=== PATIENT | female | born 1955 | race Caucasian/White ===

== ENCOUNTER 2018-08-25 06:39 | Day surgery (SDC) | payer BC ==
[~2018-08-25 06:39] MED LIST: Lactated Ringers 1,000 ML IV SCH; Lidocaine 1%/Sod Bicarbonate in NS 8.4% 1 ML Syringe IDERM PRN; Sodium Chloride 0.9% 10 ML Syringe FLUSH PRN
[2018-08-25] MEDS ORDERED: fentaNYL 100 MCG/2 ML SDV ONE (07:25)
[2018-08-25] MEDS ORDERED: Propofol 200 MG/20 ML SDV ONE (07:25)
[2018-08-25] MEDS ORDERED: Lidocaine 1% 4 ML ONE (07:26)
--- NOTE | 2018-08-25 08:53 | PCM.OPNOTE ---
- General Post-Op/Procedure Note Date of Surgery/Procedure: 08/25/18 Operative Procedure(s): Surveillance colonoscopy attempted and terminated, with polypectomy Findings: Multiple colon sigmoid and rectal polyps 1-4mm, only sampling of polyps taken. Small and large diverticulum. Colonoscope that could not pass 20cm. Pre Op Diagnosis: History of colon polyps and colon stricture Post-Op Diagnosis: same Anesthesia Technique: MAC Primary Surgeon: Dana Frazier Anesthesia Provider: Denis Morales Pathology: 1. Sigmoid polyps x4 2. Rectal polyps x6 Output, Urine Amount: 0 EBL in mLs: 0 Complications: none apparent Condition: Good
--- NOTE | 2018-08-25 08:56 | PCM.PRNOTE ---
- Free Text/Narrative Note: Operative Report Date of Surgery/Procedure: August 25, 2018 Operative Procedure: Surveillance Colonoscopy - aborted, with polypectomy Pre Op Diagnosis: colorectal cancer screening . for History of colon polyps, history of colon stricture Post-Op Diagnosis: Same Surgeon: Dana Frazier MD Anesthesia Technique: MAC Anesthesia Provider: Denis Morales CRNA IV Fluid Replacement, Intraop: See anesthesia record Output, Urine Amount: 0cc EBL : 0cc Findings: Multiple colon sigmoid and rectal polyps 1-4mm, only sampling of polyps taken. Small and large diverticulum. Colonoscope that could not pass 20cm. Specimens: 1. Sigmoid polyps 4 2. Rectal polyps 6 Indication: The patient is a 63 year-old lady who presented to the outpatient clinic requesting colorectal cancer screening. The patient has a history of diverticulitis with a colonic stricture that was previously dilated. She also has a history of adenomatous colon polyps with high-grade dysplasia. We discussed the procedure of a surveillance colonoscopy including the polypectomy and biopsy. Risks of bleeding and perforation were discussed, the patient understood and wished to proceed. The patient is being followed by GI in [place]. I discussed the patient that if we could not pass the scope that she would have to proceed with colonoscopy or other tests as indicated by GI in [place]. Written and consent was obtained, and the patient agreed to this plan. Description of the procedure: The patient was brought to the endoscopy suite and placed in the left lateral decubitus position. Appropriate monitors were applied. The patient was given MAC anesthesia. An anorectal examination was performed, revealing external skin tags. The scope was placed into the rectum and advanced 20cm. at this point, the scope would not pass any further. Increase medication was given and abdominal pressure was applied without success. At this point, the scope was withdrawn, paying careful attention to the mucosa. Multiple polyps ranging from 1-4 mm were scattered throughout the visualized mucosa. Four sigmoid polyps were removed, additionally 6 Rectal polyps were removed. There were still polyps remaining in the tissues. After this polypectomy the scope was retroflexed and some hemorrhoidal tissue was seen. The scope was placed back in the lumen and the excess air was aspirated. The patient tolerated the procedure well. Complications: none apparent Condition: Good, transported to PACU in stable condition. Instructions: The patient will proceed immediately to a barium enema for better visualization of the colon. I instructed the patient to inform her supervisor cytology in [place] of the difficulty that we experienced and the testing that we were going to perform so that this physician may follow up these tests. She will follow up with me in 2 weeks. Dana Frazier MD General Surgery
--- NOTE | 2018-08-25 08:57 | PCM.PREANE ---
Preanesthetic Assessment - Procedure Proposed Procedure: Surveillance colonoscopy - Anesthesia/Transfusion/Family Hx Anesthesia History: Prior Anesthesia Without Reaction Family History of Anesthesia Reaction: No Transfusion History: No Prior Transfusion(s) Additional History: MS - Review of Systems General: No Symptoms Pulmonary: No Symptoms Cardiovascular: No Symptoms Gastrointestinal: No Symptoms Neurological: No Symptoms Other: Reports: None - Physical Assessment NPO Status Date: 08/24/18 NPO Status Time: 20:30 O2 Sat by Pulse Oximetry: 99 Respiratory Rate: 16 Vital Signs: Last Vital Signs Temp 36.7 C 08/25/18 06:45 Pulse 83 08/25/18 06:45 Resp 16 08/25/18 06:45 BP 126/76 08/25/18 06:45 Pulse Ox 99 08/25/18 06:45 Height: 1.65 m Weight: 49.895 kg ASA Class: 2 Mental Status: Alert & Oriented x3 Airway Class: Mallampati = 2 Dentition: Reports: Partial (upper and lower ) Thyro-Mental Finger Breadths: 3 Mouth Opening Finger Breadths: 3 ROM/Head Extension: Full Lungs: Clear to Auscultation, Normal Respiratory Effort Cardiovascular: Regular Rate, Regular Rhythm - Allergies Allergies/Adverse Reactions: Allergies Allergy/AdvReac Type Severity Reaction Status Date / Time Penicillins Allergy Airway Verified 04/08/14 08:31 Tightness - Blood Blood Available: No Product(s) Available: None - Anesthesia Plan Pre-Op Medication Ordered: None - Acknowledgements Anesthesia Type Planned: MAC Pt an Appropriate Candidate for the Planned Anesthesia: Yes Alternatives and Risks of Anesthesia Discussed w Pt/Guardian: Yes Pt/Guardian Understands and Agrees with Anesthesia Plan: Yes PreAnesthesia Questionnaire Cardiovascular History: Reports: Other (See Below) Other Cardiovascular History: Hyperlipidemia Gastrointestinal History: Reports: Colon Polyp, Diverticulosis Musculoskeletal History: Reports: Osteoporosis, Other (See Below) Other Musculoskeletal History: Hx of distal radius fracture Neurological History: Reports: Other (See Below) (Multiple sclerosis) Psychiatric History: Reports: Anxiety, Depression - Past Surgical History GI Surgical History: Reports: Colonoscopy, EGD Female Surgical History: Reports: Cystectomy, Hysterectomy Musculoskeletal Surgical History: Reports: Other (See Below) (Lt thumb tendon repair, wrist surgery) - HOME MEDS Home Medications: Home Meds Glatiramer Acetate [Copaxone] 40 mg PO ASDIRECTED 04/05/14 [History] Omeprazole 40 mg PO DAILY 04/05/14 [History] Aspirin [Adult Low Dose Aspirin EC] 81 mg PO DAILY 07/03/18 [History] OLANZapine [ZyPREXA] 2.5 mg PO DAILY 07/03/18 [History] Sucralfate 1 gram PO QID 07/03/18 [History] Venlafaxine HCl [Venlafaxine ER] 75 mg PO DAILY 07/03/18 [History] Venlafaxine HCl [Venlafaxine ER] 150 mg PO DAILY 07/03/18 [History] Venlafaxine [Effexor] 75 mg PO DAILY 08/25/18 [History] clonazePAM [Klonopin] 1 mg PO BID 08/25/18 [History] - CURRENT (IN HOUSE) MEDS Current Meds: Current Medications Lactated Ringer's (Ringers, Lactated) 1,000 mls @ 125 mls/hr IV ASDIRECTED BOGDAN Stop: 08/25/18 23:00 Last Admin: 08/25/18 07:05 Dose: 125 mls/hr Lidocaine/Sodium Bicarbonate (Buffered Lidocaine 1% In Ns 8.4%) 0.25 ml IDERM ONETIME PRN PRN Reason: Prior to IV Start Stop: 08/25/18 18:00 Last Admin: 08/25/18 07:05 Dose: 0.25 ml Sodium Chloride (Saline Flush) 10 ml FLUSH ASDIRECTED PRN PRN Reason: Keep Vein Open Stop: 08/25/18 18:00 Discontinued Medications Fentanyl (Sublimaze) Confirm Administered Dose 100 mcg .ROUTE .STK-MED ONE Stop: 08/25/18 07:26 Lidocaine HCl (Xylocaine-Mpf 1%) Confirm Administered Dose 4 mls @ as directed .ROUTE .STK-MED ONE Stop: 08/25/18 07:27 Propofol (Diprivan 20 Ml) Confirm Administered Dose 200 mg .ROUTE .STK-MED ONE Stop: 08/25/18 07:26
--- NOTE | 2018-08-25 08:58 | PCM48HPAN ---
Post Anesthesia Note - EVALUATION WITHIN 48HRS OF ANESTHETIC Vital Signs in Normal Range: Yes Patient Participated in Evaluation: Yes Respiratory Function Stable: Yes Airway Patent: Yes Cardiovascular Function Stable: Yes Hydration Status Stable: Yes Pain Control Satisfactory: Yes Nausea and Vomiting Control Satisfactory: Yes Mental Status Recovered: Yes Pulse Rate: 68 SaO2: 99 Resp Rate: 16 Temperature: 36.7 C Blood Pressure: 113/82
[2018-08-25] MEDS ORDERED: Barium Sulfate 105% w/v Susp 1,900 ML Bottle RECTAL ONE (09:28)
--- NOTE | 2018-08-25 11:13 | CR ---
Barium enema Preliminary view of the abdomen was obtained which is unremarkable. Air contrast barium enema was performed. Colon was outlined from the rectosigmoid to the cecum. No reflux into the terminal ileum is seen. Diverticulosis is seen most severe within the sigmoid colon. No discrete intraluminal polyp is identified. No annular constricting lesion is seen. Impression: 1. Diverticulosis most severe within sigmoid colon. 2. No additional abnormality is appreciated on air contrast barium enema study. Diagnostic code #2
== END 2018-08-25 09:25 | disposition home or self-care (01) ==
LOC: JD.SDS 06:39
PROVIDERS: ATTEND Surgery
DX: Z12.11 Encounter for screening for malignant neoplasm of colon (principal); K63.5 Polyp of colon; K62.1 Rectal polyp; K64.9 Unspecified hemorrhoids; G35 Multiple sclerosis; M81.0 Age-related osteoporosis without current pathological fracture; M18.11 Unilateral primary osteoarthritis of first carpometacarpal joint, right hand; F32.9 Major depressive disorder, single episode, unspecified; F41.9 Anxiety disorder, unspecified; F17.210 Nicotine dependence, cigarettes, uncomplicated; Z79.82 Long term (current) use of aspirin; Z79.899 Other long term (current) drug therapy; Z88.0 Allergy status to penicillin; Z86.010 Personal history of colon polyps; Z80.0 Family history of malignant neoplasm of digestive organs; Z83.71 Family history of colonic polyps
CPT/HCPCS: 45331; 74270; J2704; J3010; J7120; 00811; J2001

== ENCOUNTER 2022-04-27 08:49 | Day surgery (SDC) | payer MEDICARE, BC ==
[~2022-04-27 08:49] MED LIST changes: +Sodium Chloride 0.9% 10 ML Syringe FLUSH SCH
[2022-04-27] MEDS ORDERED: Lidocaine 1% with EPINEPHrine 1:100,000 20 ML MDV ONE (08:54)
[2022-04-27] MEDS ORDERED: Rocuronium 50 MG/5 ML Vial ONE (09:53)
[2022-04-27] MEDS ORDERED: Midazolam 1 MG/ML 2 ML SDV ONE (09:53)
[2022-04-27] MEDS ORDERED: Propofol 200 MG/20 ML SDV ONE ×2 (09:53→11:48)
[2022-04-27] MEDS ORDERED: fentaNYL 250 MCG/5 ML SDV ONE (09:53)
[2022-04-27] MEDS ORDERED: Lactated Ringers 1,000 ML ONE (09:53)
[2022-04-27] MEDS ORDERED: ceFAZolin 1 GM Vial ONE (09:53)
[2022-04-27] MEDS ORDERED: Ondansetron 4 MG/2 ML SDV ONE (11:05)
[2022-04-27] MEDS ORDERED: Ketorolac 15 MG/ML SDV ONE (11:05)
[2022-04-27] MEDS ORDERED: Dexamethasone 4 MG/ML 5 ML MDV ONE (11:05)
[2022-04-27] MEDS ORDERED: Neostigmine Methylsulfate 10 MG/10 ML MDV ONE (11:08)
[2022-04-27] MEDS ORDERED: fentaNYL 100 MCG/2 ML SDV IVPUSH PRN (11:17)
[2022-04-27] MEDS ORDERED: Ondansetron 4 MG/2 ML SDV IVPUSH PRN ×2 (11:17→12:08)
[2022-04-27] MEDS ORDERED: ePHEDrine 50 MG/ML SDV ONE (11:23)
[2022-04-27] MEDS ORDERED: Acetaminophen/oxyCODONE 325-5 MG Tab PO PRN (12:08)
[2022-04-27] MEDS ORDERED: Acetaminophen/oxyCODONE 325-5 MG Tab PO ONE (12:45)
[2022-04-27] MEDS ORDERED: Ibuprofen 600 MG Tab PO PRN (17:30)
== END 2022-04-27 13:55 | disposition home or self-care (01) ==
LOC: JD.SDS 08:49
PROVIDERS: ATTEND Obstetrics & Gynecology
DX: N81.10 Cystocele, unspecified (principal); N81.6 Rectocele; F32.A Depression, unspecified; J44.9 Chronic obstructive pulmonary disease, unspecified; Z88.0 Allergy status to penicillin; Z79.899 Other long term (current) drug therapy; Z90.49 Acquired absence of other specified parts of digestive tract; Z98.890 Other specified postprocedural states; Z87.891 Personal history of nicotine dependence
CPT/HCPCS: 36415; 57260; 81003; 86850; 86900; 86901; A9270; J0690; J1100; J1885; J2250; J2405; J2704; J2710; J3010; J7120; 00942